=== PATIENT | female | born 1945 | race American Indian/Alaskan Native ===

== ENCOUNTER 2016-07-01 07:16 | Day surgery (SDC) | payer MEDICARE ==
[2016-07-01] MEDS ORDERED: NACL 0.9% 500 ML 500 ML IV SCH (08:00)
[2016-07-01 08:42] LABS: Eosinophils % (Auto) 5.5 % (0.0-4.3); Hematocrit 37.4 % (30.3-42.9); Hemoglobin 12.3 gm/dl (10.1-14.3); Mean Corpuscular HGB Conc 33 % (30-34); Mean Corpuscular Hemoglobin 30 pg (28-32); Mean Corpuscular Volume 91 fl (79-97); Platelet Count 219 K/mm3 (140-440); Red Blood Count 4.09 M/mm3 (3.65-5.03); Red Cell Distribution Width 13.9 % (13.2-15.2); White Blood Count 6.5 K/mm3 (4.5-11.0)
[2016-07-01 08:51] LABS: INR 0.95 (0.87-1.13)
[2016-07-01 09:00] LABS: Anion Gap 13 mmol/L; BUN/Creatinine Ratio 12.85; Blood Urea Nitrogen 9 mg/dL (7-17); Calcium 8.5 mg/dL (8.4-10.2); Carbon Dioxide 29 mmol/L (22-30); Chloride 104.1 mmol/L (98-107); Glucose 110 mg/dL (65-100); Potassium 4.1 mmol/L (3.6-5.0); Sodium 142 mmol/L (137-145)
[2016-07-01] MEDS ORDERED: HEPARIN/NS 5000 UNIT/500ML(CATH LAB) 1,000 ML IR ONE (11:01)
[2016-07-01] MEDS ORDERED: CALAN ONE (11:02)
[2016-07-01] MEDS ORDERED: VERSED ONE (11:02)
[2016-07-01] MEDS ORDERED: NITROGLYCERIN SYRINGE 3 ML ONE (11:02)
[2016-07-01] MEDS ORDERED: HEPARIN 10,000 UNITS/10 ML ONE (11:02)
[2016-07-01] MEDS ORDERED: XYLOCAINE 2% INFILTRATI ONE (11:02)
[2016-07-01] MEDS ORDERED: SUBLIMAZE ONE (11:02)
--- NOTE | 2016-07-01 12:02 | Short Stay Summary ---
Short Stay Documentation Date of service: 07/01/16 - History H&P: obtained from office - Allergies and Medications Current Medications: Allergies No Known Allergies Allergy (Verified 07/01/16 07:32) Home Medications Medication Instructions Recorded Confirmed Last Taken Type Aspirin EC [Aspirin Enteric Coated 81 mg PO DAILY 07/01/16 07/01/16 07/01/16 History TAB] Pravastatin Sodium [Pravastatin 20 mg PO DAILY 07/01/16 07/01/16 07/01/16 History Sodium] Valsartan/Hydrochlorothiazide 1 tab PO DAILY 07/01/16 07/01/16 07/01/16 History [Valsartan-Hctz 80-12.5 mg] Active Medications Sodium Chloride (Nacl 0.9% 500 Ml) 500 mls @ 50 mls/hr IV DIRECT ANIYA Stop: 07/01/16 17:59 Last Admin: 07/01/16 08:35 Dose: 50 mls/hr - Physical exam General appearance: no acute distress Integumentary: no rash HEENT: Atraumatic Lungs: Clear to auscultation Breasts: deferred Heart: Regular rate Gastrointestinal: normal Female Genitourinary: deferred Rectal Exam: deferred Extremities: no ischemia Neurological: Normal gait - Brief post op/procedure progress note Date of procedure: 07/01/16 Pre-op diagnosis: Chest Pain, abnormal TMST Post-op diagnosis: same Procedure: LHC Anesthesia: MAC Findings: See report Surgeon: VIANEY LEES Estimated blood loss: none Pathology: none Condition: stable - Hospital course Hospital course: Uneventful - Disposition Condition at discharge: Good Disposition: DISCHARGED TO HOME OR SELFCARE Short Stay Discharge Plan Activity: advance as tolerated Weight Bearing Status: Weight Bear as Tolerated Diet: low fat, low cholesterol, low salt Follow up with: NITISH AMEZCUA MD [Primary Care Provider] - 7 Days
--- NOTE | 2016-07-01 12:08 | Cardiac Catherization Report ---
LEFT HEART CATHETERIZATION ORDERING PHYSICIAN: Nicky Henry MD INDICATION FOR PROCEDURE: Abnormal treadmill stress test, angina-like symptoms with exertion. PROCEDURES PERFORMED: 1. Selective left and right coronary angiography. 2. Left ventriculography. DESCRIPTION OF PROCEDURE: 1. After obtaining written consent, the patient was draped using sterile technique. 2. A 2% lidocaine was injected into the right wrist. 3. A 5-Luxembourger vascular sheath was inserted into the right radial artery. 4. A 5-Luxembourger JL3.5 catheter was used to selectively engage the left coronary artery. 5. A 5-Luxembourger catheter was used to selectively engage the right coronary artery. 6. A 5-Luxembourger JR4 catheter was used to hand inject the left ventriculogram. 7. No complications occurred during the procedure. 8. Hemostasis was achieved at the end of the procedure using manual pressure. SPECIMEN REMOVED: None. ESTIMATED BLOOD LOSS: Minimal. FINDINGS: HEMODYNAMICS: Aortic pressure was 106/69. Left ventricular systolic pressure is 102 mmHg. The left ventricular end-diastolic pressure is 22 mmHg. There was no significant gradient noted across the left ventricular outflow tract. CARDIAC STRUCTURES: The left ventricle is normal in size and systolic function, the left ventricular ejection fraction is estimated at 60%. CORONARY ANATOMY: 1. This is a right dominant circulation. 2. The left main is angiographically normal. 3. The left anterior descending artery is angiographically normal. There is, however, a 60-70% ostial stenosis of a first diagonal artery. This artery; however, is very small in caliber, it is actually less than 2 mm and less than the size of a 5-Luxembourger JL3.5 catheter that was used to engage the vessel. 4. The left circumflex artery has mild diffuse luminal irregularities with less than 10% luminal stenosis. 5. The right coronary artery has evidence of scattered 20% lesions noted in the proximal segment, otherwise mild diffuse luminal irregularities. IMPRESSION: 1. Nonobstructive coronary artery disease noted in the major epicardial arteries. 2. A 60-70% ostial stenosis of the first diagonal artery. However, this vessel is very small in caliber measuring less than 2 mm in diameter, actually less than the diameter size of the 5-Luxembourger catheter used to inject the vessel. 3. Normal left ventricular size and systolic function. 4. LVEDP measured at 22 mmHg. 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 JOB# [id number] ROSANNE/JUAN FRANCISCO
[2016-07-01 13:35] VITALS: BP 130/54
== END 2016-07-01 14:20 | disposition home or self-care (01) ==
LOC: OPU 07:16
PROVIDERS: ATTEND Internal Medicine
DX: I25.10 Atherosclerotic heart disease of native coronary artery without angina pectoris (principal); I10 Essential (primary) hypertension; Z79.899 Other long term (current) drug therapy; Z79.01 Long term (current) use of anticoagulants
CPT/HCPCS: 36415; 80048; 85025; 85610; 85730; 93005; 93010; 93458; C1894; J1644; J2250; J3010; Q9967